=== PATIENT | female | born 1970 | race Caucasian/White ===

== ENCOUNTER 2017-08-22 16:01 | Inpatient (IN) | END 2017-08-25 11:55 | disposition home or self-care (01) | DRG 872 ==

== ENCOUNTER 2018-06-23 07:13 | Emergency (ER) | payer BC, MEDICAID ==
[~2018-06-23] VITALS: Wt 73.0 kg
[~2018-06-23 07:13] MED LIST: LEVO750T25 PO
[2018-06-23] MEDS ORDERED: ONDANSETRON (ODT) 4 MG TAB ODT STA (08:45)
[2018-06-23] MEDS ORDERED: KETOROLAC 30 MG INJ IM STA (08:45)
[2018-06-23] MEDS ORDERED: HYDROmorphONE 2 MG/ML SYG IM STA ×2 (08:45→10:14)
[2018-06-23] MEDS ORDERED: CIPROFLOXACIN 500 MG TAB PO ONE (10:30)
[2018-06-23] MEDS ORDERED: CIPR500T4 PO (11:20)
[2018-06-23] MEDS ORDERED: IBUP-1542 PO (11:20)
[2018-06-23] MEDS ORDERED: HYDR-3980 PO (11:20)
[2018-06-23] MEDS ORDERED: NALO4SPR NS (11:20)
[2018-06-23 11:45] VITALS: BP 110/66; PULSE 74; RESP 18
--- NOTE | 2018-06-23 12:32 | ERD ---
ER Documentation Chief Complaint Chief Complaint LEFT SIDE FLANK PAIN SINCE THIS AM. NO N/V. NO DIARRHEA PER PT. HPI Patient is a 47-year-old female with a history of kidney stone who presents" I have kidney stones". The patient says that she has left-sided flank pain and urinary frequency. She has no fevers. Her symptoms started at 4 AM. The pain has been sharp and constant. She has had no treatment as of yet. She does not currently have a primary doctor or a urologist. Upon review of old medical records this the patient's fifth visit to the ER since 2011. ROS All systems reviewed and are negative except as per history of present illness. Medications Home Meds Active Scripts Ciprofloxacin Hcl* (Ciprofloxacin Hcl*) 500 Mg Tablet, 500 MG PO BID for 7 Days, TAB Prov:FINN LOPEZ MD 06/23/18 Ibuprofen* (Motrin*) 600 Mg Tab, 600 MG PO Q6H PRN for PAIN AND OR ELEVATED TEMP, #30 TAB Prov:FINN LOPEZ MD 06/23/18 Naloxone HCl nasal spray (Narcan 4 mg/0.1 mL nasal) 4 Mg [place], 4 MG NS .Q2-3MIN for OPIOID OVERDOSE, #2 SPRAY 0 Refills [place] 0.1 mL into one nostril. Repeat with second device into other nostril after 2-3 minutes if no or minimal response Prov:FINN LOPEZ MD 06/23/18 Hydrocodone/Acetaminophen ([place] 10-325 Tablet) 1 Each Tablet, 1 TAB PO Q6H PRN for PAIN, #12 TAB Prov:FINN LOPEZ MD 06/23/18 Discontinued Scripts Levofloxacin* (Levaquin*) 750 Mg Tablet, 750 MG PO DAILY for 10 Days, #10 TAB Prov:KHURRAM DELGADO MD 08/25/17 Allergies Allergies: Coded Allergies: No Known Allergy (Unverified , 06/23/18) PMhx/Soc History of Surgery: Yes (CS X2) Anesthesia Reaction: No Hx Neurological Disorder: No Hx Respiratory Disorders: No Hx Cardiac Disorders: No Hx Psychiatric Problems: No Hx Miscellaneous Medical Probl: Yes (MIGRAINE, kidney stones) Hx Alcohol Use: No Hx Substance Use: No Hx Tobacco Use: Yes Smoking Status: Never smoker FmHx Family History: diabetes Physical Exam Vitals Vital Signs Date Temp Pulse Resp B/P (MAP) Pulse Ox O2 O2 Flow FiO2 Time Delivery Rate 06/23/18 88 16 136/89 99 Room Air 09:00 (105) 06/23/18 97.8 98 18 148/98 99 07:16 (115) Physical Exam Const: Mild distress secondary to pain Head: Atraumatic Eyes: Normal Conjunctiva ENT: Normal External Ears, Nose and Mouth. Neck: Full range of motion. No meningismus. Resp: Clear to auscultation bilaterally Cardio: Regular rate and rhythm, no murmurs Abd: Soft, non tender, non distended. Normal bowel sounds Skin: No petechiae or rashes Back: No midline or flank tenderness Ext: No cyanosis, or edema Neur: Awake and alert Psych: Normal Mood and Affect Results 24 hrs Laboratory Tests Test 06/23/18 09:20 06/23/18 09:21 Bedside Urine pH (LAB) 6.5 Bedside Urine Protein (LAB) 3+ Bedside Urine Glucose (UA) Negative Bedside Urine Ketones (LAB) Negative Bedside Urine Blood 3+ Bedside Urine Nitrite (LAB) Positive Bedside Urine Leukocyte Esterase (L 3+ POC Beta HCG, Qualitative NEGATIVE Current Medications Medications Dose Sig/Minnie Start Time Status Last (Trade) Ordered Route PRN Stop Time Admin Dose Reason Admin 2 mg ONCE STAT 06/23/18 DC 06/23/18 Hydromorphone IM 08:45 08:55 HCl 06/23/18 08:47 (Dilaudid) Ketorolac 30 mg ONCE STAT 06/23/18 DC 06/23/18 Tromethamine IM 08:45 08:56 (Toradol) 06/23/18 08:47 Ondansetron 4 mg ONCE STAT 06/23/18 DC 06/23/18 HCl (Zofran ODT 08:45 08:56 Odt) 06/23/18 08:47 2 mg ONCE STAT 06/23/18 DC 06/23/18 Hydromorphone IM 10:14 10:28 HCl 06/23/18 10:15 (Dilaudid) 500 mg ONCE ONCE 06/23/18 DC 06/23/18 Ciprofloxacin PO 10:30 10:29 (Cipro) 06/23/18 10:31 Procedures/MDM KUB read by radiology. Smoking Cessation Therapy: Pt. was lectured for greater than 3 minutes on the health risks of continued smoking and the benefits of cessation. Patient is a 47-year-old female with history of kidney stone who presents with flank pain. The patient is a large stone seen on KUB but I am not convinced that this is an obstructing stone. Urinalysis does show sign of infection. I doubt sepsis at this time and I believe outpatient management is appropriate but the patient will be given a prescription for [place], Narcan, and Cipro. The patient was to follow-up with Dr. Burkett within 24 to 48 hours for reevaluation. The patient can return for any worsening symptoms. Departure Diagnosis: Primary Impression: Kidney stone Additional Impressions: Flank pain Pyelonephritis Condition: Fair Patient Instructions: Pyelonephritis, Female (Adult) Referrals: GIN BURKETT MD Additional Instructions: SPECIALIST: YOU HAVE A MEDICAL CONDITION WHICH REQUIRES YOU TO SEE A SPECIALIST WITHIN THE NEXT 1-2 DAYS. PLEASE FOLLOW UP WITH YOUR PRIMARY PHYSICIAN FOR REFFERAL.IF YOU DO NOT HAVE A PRIMARY CARE PHYSICIAN AND/OR YOU CAN NOT AFFORD TO SEE A PHYSICIAN THE FOLLOWING RESOURCES HAVE BEEN SUPPLIED TO YOU. IT IS YOUR RESPONSIBILITY TO BE SEEN BY THE SPECIALIST FINN LOPEZ MD Jun 23, 2018 12:32
== END 2018-06-23 12:40 | disposition home or self-care (01) ==
LOC: E/R 07:13
DX: N20.0 Calculus of kidney (principal); N12 Tubulo-interstitial nephritis, not specified as acute or chronic; Z87.891 Personal history of nicotine dependence
CPT/HCPCS: 74018; 81003; 81025; 96372; 99284; J1170; J1885

== ENCOUNTER 2018-08-30 22:40 | Emergency (ER) | payer BC, MEDICAID ==
[~2018-08-30] VITALS: Ht 160 cm; Wt 86.0 kg
[~2018-08-30 22:40] MED LIST changes: +CIPR500T4 PO; +HYDR-3980 PO; +IBUP-1542 PO; -LEVO750T25 PO; +NALO4SPR NS
[2018-08-30 22:49] VITALS: BP 149/90; PULSE 114; RESP 18; Ht 160 cm; Wt 86.0 kg
[2018-08-31] MEDS ORDERED: KETOROLAC 30 MG INJ IM STA (02:46)
--- NOTE | 2018-08-31 02:46 | ERD ---
ER Documentation Chief Complaint Chief Complaint R FOREARM/ ELBOW PAIN X'S 2 DAYS HPI This is a 48-year-old female presents emergency department with complaints of right outer elbow pain that is on and off for about a 2 weeks. No trauma. Also complains of left lateral elbow insect bite with redness and is warm to touch for 3 days. She also added that she has multiple insect bites her bilateral lower extremities. LMP: Stated that it was a year ago. A0. Denies headache, head injury, loss of consciousness, dizziness, neck pain, neck stiffness, throat pain, difficulty swallowing, difficulty breathing lying flat, shoulder pain, chest pain, back pain, abdominal pain, nausea, vomiting, constipation, diarrhea, urinary symptoms, or possibility being , loss of bowel and bladder control, trauma, injury, falls, difficulty walking due to pain, numbness or tingling sensation, calf pain, recent travel, recent major surgery in the last 3 weeks, calf pain, recent long travel, recent exposure to any illness, recent antibiotic use in the last 3 months, fever, chills, seizures. Past medical history: Denies. Surgical history: x2. Social: Denies smoking, use of alcoholic beverages, use of illegal drugs. ROS All systems reviewed and are negative except as per history of present illness. Medications Home Meds Active Scripts Tramadol HCl (Tramadol HCl) 50 Mg Tablet, 50 MG PO Q4 PRN for SEVERE PAIN LEVEL 7-10, #5 TAB Prov:JASPER ELIZABETH 08/31/18 Loratadine* (Loratadine*) 10 Mg Tablet, 10 MG PO DAILY, #30 TAB Prov:JASPER ELIZABETH 08/31/18 Diphenhydramine Hcl* (Benadryl*) 25 Mg Cap, 25 MG PO Q6 PRN for ITCHING/RASH, #30 TAB Prov:JASPER ELIZABETH 08/31/18 Prednisone* (Prednisone*) 20 Mg Tab, 40 MG PO DAILY for 4 Days, TAB Prov:JASPER ELIZABETH 08/31/18 Cephalexin* (Keflex*) 500 Mg Capsule, 500 MG PO TID for 7 Days, CAP Prov:BANDARILAJASPER EBAR 08/31/18 Famotidine* (Pepcid*) 20 Mg Tablet, 40 MG PO DAILY for 30 Days, TAB Prov:JASPER ELIZABETH 08/31/18 Ibuprofen* (Motrin*) 800 Mg Tab, 800 MG PO Q8 PRN for PAIN AND OR ELEVATED TEMP, #30 TAB Prov:AJSPER ELIZABETH 08/31/18 Ciprofloxacin Hcl* (Ciprofloxacin Hcl*) 500 Mg Tablet, 500 MG PO BID for 7 Days, TAB Prov:FINN LOPEZ MD 06/23/18 Ibuprofen* (Motrin*) 600 Mg Tab, 600 MG PO Q6H PRN for PAIN AND OR ELEVATED TEMP, #30 TAB Prov:FINN LOPEZ MD 06/23/18 Naloxone HCl nasal spray (Narcan 4 mg/0.1 mL nasal) 4 Mg [place], 4 MG NS .Q2-3MIN for OPIOID OVERDOSE, #2 SPRAY 0 Refills [place] 0.1 mL into one nostril. Repeat with second device into other nostril after 2-3 minutes if no or minimal response Prov:FINN LOPEZ MD 06/23/18 Hydrocodone/Acetaminophen ([place] 10-325 Tablet) 1 Each Tablet, 1 TAB PO Q6H PRN for PAIN, #12 TAB Prov:FINN LOPEZ MD 06/23/18 Allergies Allergies: Coded Allergies: No Known Allergy (Unverified , 06/23/18) PMhx/Soc History of Surgery: Yes (CS X2) Anesthesia Reaction: No Hx Neurological Disorder: No Hx Respiratory Disorders: No Hx Cardiac Disorders: No Hx Psychiatric Problems: No Hx Miscellaneous Medical Probl: Yes (MIGRAINE, kidney stones) Hx Alcohol Use: No Hx Substance Use: No Hx Tobacco Use: Yes Smoking Status: Never smoker Physical Exam Vitals Physical Exam Const: No acute distress Head: Atraumatic Eyes: Normal Conjunctiva ENT: Normal External Ears, Nose and Mouth. Neck: Full range of motion. No meningismus. Resp: Clear to auscultation bilaterally Cardio: Regular rate and rhythm, no murmurs Abd: Soft, non tender, non distended. Normal bowel sounds Skin: No petechiae or rashes. Left arm cellulitis. Back: No midline or flank tenderness Ext: No cyanosis, or edema. Right elbow: Lateral area has a tenderness to palpation. No obvious deformity. Good and full range of motion. Right forearm/wrist/hand is unremarkable. Right hand is good and full function. Right humerus is unremarkable. Right shoulder is unremarkable. Capillary refills to right upper extremities less than 2 seconds. Left upper extremity is unremarkable. Distal area bilateral lower extremity/distal tibia and fibula has a circular redness that is warm to touch that is consistent with cellulitis. No calf tenderness bilaterally. Capillary refills to bilateral lower extremities are less than 2 seconds. No neurovascular deficit. Ambulatory with steady gait. Neur: Awake and alert. No neurological deficits. Psych: Normal Mood and Affect Results 24 hrs Laboratory Tests Test 08/31/18 01:57 POC Beta HCG, Qualitative NEGATIVE Current Medications Medications Dose Sig/Minnie Start Time Status Last (Trade) Ordered Route PRN Stop Time Admin Dose Reason Admin Ketorolac 30 mg ONCE STAT 08/31/18 DC 08/31/18 Tromethamine IM 02:46 08/31/18 02:58 (Toradol) 02:48 1 tab ONCE ONCE 08/31/18 DC 08/31/18 Acetaminophen PO 03:00 08/31/18 02:57 / 03:01 Hydrocodone Bitart ([place] (10/325)) Famotidine 40 mg ONCE ONCE 08/31/18 DC 08/31/18 (Pepcid) PO 03:00 08/31/18 02:57 03:01 25 mg ONCE ONCE 08/31/18 DC 08/31/18 Diphenhydrami PO 03:00 08/31/18 02:57 ne HCl 03:01 (Benadryl) Procedures/MDM Diagnostic tests: Clinical exam. I offered diagnostic tests but patient and family members strongly refused. Treatment: Toradol. [place]. Benadryl. Pepcid. Re-evaluation: No neurovascular deficits. Has good and full function of her bilateral hand. Differential diagnosis I have low suspicion for displaced fracture, compartment syndrome, deep space infection, sepsis, Pope-Laureano syndrome. Final diagnosis: Cellulitis. Multiple insect bites. Tennis elbow. Prescription: Keflex. Motrin. Benadryl. Claritin. Pepcid. Prednisone. Tramadol for severe pain. Follow-up with PCP in the next 24-48 hours. PCP to refer patient to lead sustainability specialist in the next 3 to 5 days. Come back here in the emergency department for any new symptoms or any worsening symptoms. All questions and concerns were answered. Patient and family members verbalized understanding and agreed with plan of care. Hemodynamically stable on discharge. Departure Diagnosis: Primary Impression: Right tennis elbow Additional Impressions: Cellulitis Insect bite Condition: Stable Additional Instructions: Follow-up with PCP in the next 24-48 hours. PCP to refer patient to lead sustainability specialist in the next 3 to 5 days. Come back here in the emergency department for any new symptoms or any worsening symptoms. JASPER ELIZABETH Aug 31, 2018 02:46
[2018-08-31] MEDS ORDERED: IBUP800T48 PO (02:55)
[2018-08-31] MEDS ORDERED: PRED20TA PO (02:56)
[2018-08-31] MEDS ORDERED: CEPH-443 PO (02:56)
[2018-08-31] MEDS ORDERED: FAMO-96 PO (02:56)
[2018-08-31] MEDS ORDERED: LORA10TA3 PO (02:57)
[2018-08-31] MEDS ORDERED: BEN25 PO (02:57)
[2018-08-31] MEDS ORDERED: TRAM50TA2 PO (02:59)
[2018-08-31] MEDS ORDERED: FAMOTIDINE 20 MG TAB PO ONE (03:00)
[2018-08-31] MEDS ORDERED: HYDROCODONE/APAP (10/325) TAB PO ONE (03:00)
[2018-08-31] MEDS ORDERED: DIPHENHYDRAMINE 25 MG CAP PO ONE (03:00)
== END 2018-08-31 03:13 | disposition home or self-care (01) ==
LOC: FTE 22:40
DX: S80.862A Insect bite (nonvenomous), left lower leg, initial encounter (principal); M77.11 Lateral epicondylitis, right elbow; L03.115 Cellulitis of right lower limb; L03.116 Cellulitis of left lower limb; L03.114 Cellulitis of left upper limb; S80.861A Insect bite (nonvenomous), right lower leg, initial encounter; W57.XXXA Bitten or stung by nonvenomous insect and other nonvenomous arthropods, initial encounter; Y92.9 Unspecified place or not applicable
CPT/HCPCS: 81025; 96372; 99284; J1885